=== PATIENT | female | born 1955 | race Caucasian/White ===

== ENCOUNTER 2023-08-15 13:15 | Outpatient (RCR) | payer BC, SELFPAY | END 2023-08-15 15:19 | disposition home or self-care (01) | LOC: RPT 13:15 | PROVIDERS: ATTENDING PHYSICIAN Student in an Organized Health Care Education/Training Program | DX: M25.551 Pain in right hip (principal); M25.552 Pain in left hip; R42 Dizziness and giddiness | CPT/HCPCS: 97110; 97112; 97530 ==

== ENCOUNTER 2023-11-12 12:01 | Emergency (ER) | payer MEDICARE, OTHER, SELFPAY ==
[2023-11-12 12:11] VITALS: BP 165/105
--- NOTE | 2023-11-12 12:50 | ED.GENMED ---
History of Present Illness
General
Chief Complaint: Heart Rate Problem
Source: patient
Exam Limitations: none
Time Seen by Provider: 11/12/23 12:39
Travel History
Have you had any contact with someone who has COVID-19?: No
Do you have any symptoms of coronavirus? Fever > 100 degrees, chills, cough, shortness of breath, sore throat, loss of taste or smell, muscle aches, or headache?: No
History of Present Illness
History of Present Illness:
See MDM
Past History
Past History
ED Past Medical History: HTN and Hypercholesterolemia
ED Past Surgical History: None
Social History
Tobacco: Non-smoker
Phy Exam
Physical Exam
Physical Exam:
See MDM
Course
Orders/Labs/Results
Orders:
Orders
11/12/23 12:15
Electrocardiogram (*1) Urgent
Reason for Study: Palpitations
EKG- Treatment ONCE
11/12/23 12:49
0.9% Sodium Chloride 1000 ml [Nss] 1,000 ml IV BOLUS
11/12/23 13:02
Complete Blood Count/With Diff Urgent
Comprehensive Metabolic Panel Urgent
Magnesium Urgent
TSH Reflex To Free T4 Urgent
Troponin I Urgent
11/12/23 14:55
Metoprolol Xl [Toprol Xl] 25 mg PO NOW STA
Abnormal Lab Results
11/12/23
13:02
MCH 31.8 H pg
(27.0-31.0)
BUN 18 H mg/dl
(7-17)
Glucose 110 H mg/dl
(70-99)
11/12/23 13:02
11/12/23 13:02
Vital Signs
Initial and Last Documented VS:
Initial Vital Signs
Temp Pulse Resp BP Pulse Ox
98.0 F 124 18 165/105 100
11/12/23 12:11 11/12/23 12:11 11/12/23 12:11 11/12/23 12:11 11/12/23 12:11
Last Documented Vital Signs
Temp Pulse Resp BP Pulse Ox
98.0 F 115 14 147/80 96
11/12/23 12:11 11/12/23 14:46 11/12/23 14:46 11/12/23 14:46 11/12/23 14:46
MDM/Problems Addressed
Differential Diagnosis Includes:
HPI and MDM Narrative:
68-year-old female presenting with palpitations. This occurred while she was at a . Patient does acknowledge that there was no emotional stress associated with this. This is a very similar presentation 1 month ago when she was in [place].
She went to the emergency department there and symptoms resolved with fluids and she was told she is likely dehydrated. She does not currently feel dehydrated. She is worried that the symptoms have returned. She denies prior cardiac history.
Symptoms are not worse with exertion. Regardless of the recent plane rides, she denies any leg swelling or leg pain.
On exam, she is well-appearing nontoxic. EKG shows a sinus rhythm with sinus arrhythmia. Will obtain basic including magnesium, troponin and thyroid testing. Patient acknowledges the likelihood of a negative workup but will place on cardiac
callback tracker for expedited followup
Physical exam
General: Well appearing and non-toxic
HEENT: protecting airway
Neck: appears supple
CV: No evidence of cyanosis. Regular rate and rhythm. Initial tachycardia with
Resp: No accessory muscle use
Abd: Non-distended
Extremities: No deformities. No leg edema or unilateral tenderness
Neuro: alert
Psych: Normal affect
Skin: Intact
Problems Addressed including Acute and Chronic Conditions affecting care:
1. Palpitations
Acuity: acute
Prognosis: stable
Details: Will give IV fluids and reassess. Will obtain basic blood work but ultimately will place on cardiac callback tracker
Updates
Blood work without significant abnormality. Patient intermittently becomes tachycardic. Will start metoprolol. Patient placed on cardiac callback tracker.
Differential Diagnosis (but not limited to): Dehydration, palpitations, A-fib
Testing considered: D-dimer but she has no clinical signs of DVT
Drug therapy (if applicable): OTC meds, please see d/c instruction regarding Rx drugs
Amount and/or Complexity of Data Reviewed
Clinical info obtained from: Patient
External data reviewed: N/A
Labs I independently reviewed (but not limited to): Troponin negative
Radiology: N/A
Pulse Ox: not hypoxic
EKG independently reviewed: Sinus rhythm, normal axis, no STEMI
Communications Electrician Supervisor: Sinus rhythm
Critical Care: N/A
Risk of Complication:
Social Determinants of health: Good social support
Discussed with other providers: N/A
Escalation of Care includes Admit/Obs: After being observed in the Emergency Department, pt stable for discharge.
Occasional wrong word or 'sound a like' substitutions may have occurred due to the inherent limitations of voice recognition software. Read the chart carefully and recognize, using context, where substitutions have occurred.
*Critical Care Note
Total Time (30-74mins, 75-104mins- exclusive of procedures): Not Applicable
ED Attending Note
-
Portions of this chart may have been created with voice recognition software.� Occasional wrong word or��sound alike� substitutions may have occurred due to the inherent limitations of voice recognition software.
Discharge Plan
Departure
Patient Disposition: Home (Routine Discharge)
Date of Disposition: 11/12/23
Time of Disposition: 14:58
Patient with high blood pressure during this ER visit?: Yes
Discharge Problem:
Heart palpitations
Instructions: Palpitations (DC), Chest Pain CBC Follow Up, BLOOD PRESSURE
Prescriptions:
New
metoprolol succinate [Toprol XL] 25 mg tablet extended release 24 hr
25 mg PO DAILY Qty: 30 0RF
Referrals:
Rigo Roman MD [Active] -
Luciana Lama MD [Family Provider] -
Activity Restrictions/Additional Instructions:
Please return for any worsening symptoms.
You may return at any time if you have further concerns.
Please follow up with your doctor at the first available appointment, preferably this week.
You were placed on the cardiac callback tracker. Someone from their office should call you in the next few days. If you do not hear from them in the next few days, please give them a call.
Thank you for choosing [facility].
Interventions
Interventions:
*Risk Screen - Suicide Last Done: 11/12/23 12:14
*General Assessment Last Done: 11/12/23 12:14
*Neglect/Abuse Screening Last Done: 11/12/23 12:14
ED- Fall Risk Assessment Last Done: 11/12/23 13:10
ED- Cardiac Assessment Last Done: 11/12/23 14:51
ED- Pulmonary Assessment Last Done: 11/12/23 13:10
[2023-11-12] MEDS: NSS 1000 IV (13:08)
[2023-11-12 13:14] LABS: % Eosinophils 2.9 % (0-6); % Immature Granulocytes 0.3 % (0-0.5); % Monocytes 9.2 % (1.7-9.3); % Neutrophils 52.6 % (42.2-75.2); Absolute Basophils 0.1 10^3/uL (0-0.2); Absolute Eosinophils 0.2 10^3/uL (0-0.7); Absolute Monocytes 0.5 10^3/uL (0.1-0.6); Absolute Neutrophils 3.1 10^3/uL (1.4-6.5); Hematocrit 38.6 % (37.0-47.0); Hemoglobin 13.8 g/dL (12.0-16.0); Mean Corp Hgb Conc. 35.8 g/dL (33.0-37.0); Mean Corpuscular Hgb 31.8 pg (27.0-31.0); Mean Corpuscular Volume 88.9 fL (81.0-99.0); Mean Platelet Volume 8.7 fL (7.4-10.4); Nucleated Red Blood Cells % 0 %; Platelet Count 279 10^3/uL (130-400); Red Blood Cell Count 4.34 10^6/uL (4.20-5.40); Red Cell Dist. Width 12.3 % (11.5-14.5); White Blood Cell Count 5.9 10^3/uL (4.8-10.8)
[2023-11-12 13:30] LABS: ALT (SGPT) 33 U/L (0-35); AST (SGOT) 29 U/L (14-36); Albumin 4.8 g/dl (3.5-5.0); Alkaline Phosphatase 69 U/L (38-126); Blood Urea Nitrogen 18 mg/dl (7-17); Calcium 9.9 mg/dl (8.4-10.2); Carbon Dioxide 29 mmol/L (22-30); Chloride 100 mmol/L (98-107); Glucose 110 mg/dl (70-99); Potassium 3.7 mmol/L (3.5-5.1); Sodium 138 mmol/L (135-145); Total Bilirubin 0.8 mg/dl (0.2-1.3); Total Protein 7.4 g/dl (6.3-8.2); eGFR > 60.00
[2023-11-12 13:39] LABS: Troponin I < 0.012 ng/ml
[2023-11-12 13:55] VITALS: BP 145/89
[2023-11-12 14:00] VITALS: BP 158/82
[2023-11-12 14:46] VITALS: BP 147/80
[2023-11-12 15:00] VITALS: BP 152/80
[2023-11-12] MEDS: TOPROL XL 25 MG PO (15:09)
== END 2023-11-12 15:19 | disposition home or self-care (01) ==
LOC: EMR 12:01
PROVIDERS: EMERGENCY PHYSICIAN Student in an Organized Health Care Education/Training Program; FAMILY PHYSICIAN Student in an Organized Health Care Education/Training Program
DX: R00.2 Palpitations (principal); I10 Essential (primary) hypertension
CPT/HCPCS: 99284; 96360; 80053; 83735; 84443; 84484; 85025; 93005

== ENCOUNTER → 2023-11-24 09:45 | Outpatient (REF) | payer OTHER, SELFPAY | LOC: RCS 09:45 | PROVIDERS: ATTENDING PHYSICIAN Internal Medicine Cardiovascular Disease; FAMILY PHYSICIAN Student in an Organized Health Care Education/Training Program | DX: R00.2 Palpitations (principal) | CPT/HCPCS: 93225; 93226 ==

== ENCOUNTER → 2023-12-24 09:23 | Outpatient (REF) | payer OTHER, SELFPAY | LOC: RCS 09:23 | PROVIDERS: ATTENDING PHYSICIAN Internal Medicine Cardiovascular Disease; FAMILY PHYSICIAN Student in an Organized Health Care Education/Training Program | DX: R00.2 Palpitations (principal) | CPT/HCPCS: 93306 ==

== ENCOUNTER → 2024-08-23 13:55 | Outpatient (REF) | payer OTHER, SELFPAY | LOC: WDC 13:55 | PROVIDERS: ATTENDING PHYSICIAN Obstetrics & Gynecology Gynecology; FAMILY PHYSICIAN Student in an Organized Health Care Education/Training Program | DX: Z12.31 Encounter for screening mammogram for malignant neoplasm of breast (principal); Z12.39 Encounter for other screening for malignant neoplasm of breast | CPT/HCPCS: 77063; 77067 ==

== ENCOUNTER → 2024-09-23 10:28 | Outpatient (REF) | payer MEDICARE, OTHER, SELFPAY | LOC: RAD 10:28 | PROVIDERS: ATTENDING PHYSICIAN Student in an Organized Health Care Education/Training Program | DX: Z78.0 Asymptomatic menopausal state (principal) | CPT/HCPCS: 77080 ==

== ENCOUNTER → 2024-11-19 10:49 | Outpatient (REF) | payer MEDICARE, OTHER, SELFPAY ==
[2024-11-19 11:31] LABS: % Basophils 0.9 % (0-2); % Eosinophils 6.2 % (0-6); % Immature Granulocytes 0.5 % (0-0.5); % Monocytes 7.8 % (1.7-9.3); % Neutrophils 53.6 % (42.2-75.2); Absolute Basophils 0.1 10^3/uL (0-0.2); Absolute Eosinophils 0.4 10^3/uL (0-0.7); Absolute Monocytes 0.5 10^3/uL (0.1-0.6); Absolute Neutrophils 3.4 10^3/uL (1.4-6.5); Hematocrit 40.3 % (37.0-47.0); Hemoglobin 13.7 g/dL (12.0-16.0); Mean Corpuscular Hgb 31.4 pg (27.0-31.0); Mean Corpuscular Volume 92.2 fL (81.0-99.0); Mean Platelet Volume 8.9 fL (7.4-10.4); Nucleated Red Blood Cells % 0 %; Platelet Count 295 10^3/uL (130-400); Red Blood Cell Count 4.37 10^6/uL (4.20-5.40); White Blood Cell Count 6.3 10^3/uL (4.8-10.8)
[2024-11-19 12:00] LABS: Blood Urea Nitrogen 18 mg/dl (7-17); Calcium 10.2 mg/dl (8.4-10.2); Carbon Dioxide 34 mmol/L (22-30); Chloride 104 mmol/L (98-107); Glucose 106 mg/dl (70-99); Potassium 4.4 mmol/L (3.5-5.1); Sodium 143 mmol/L (135-145); eGFR > 60.00
== END ==
LOC: RCS 10:49
PROVIDERS: ATTENDING PHYSICIAN Orthopaedic Surgery; FAMILY PHYSICIAN Student in an Organized Health Care Education/Training Program
DX: Z01.818 Encounter for other preprocedural examination (principal)
CPT/HCPCS: 36415; 80048; 85025; 93005

== ENCOUNTER → 2024-12-23 13:08 | Outpatient (REF) | payer MEDICARE, OTHER, SELFPAY | LOC: RAD 13:08 | PROVIDERS: ATTENDING PHYSICIAN Student in an Organized Health Care Education/Training Program | DX: K59.00 Constipation, unspecified (principal) | CPT/HCPCS: 74018 ==

== ENCOUNTER 2024-12-24 15:13 | Outpatient (RCR) | payer MEDICARE, OTHER, SELFPAY | END 2024-12-24 23:59 | disposition home or self-care (01) | LOC: RPT 15:13 | PROVIDERS: ATTENDING PHYSICIAN Orthopaedic Surgery; FAMILY PHYSICIAN Student in an Organized Health Care Education/Training Program | DX: Z47.1 Aftercare following joint replacement surgery (principal); M16.12 Unilateral primary osteoarthritis, left hip; Z73.6 Limitation of activities due to disability; R26.89 Other abnormalities of gait and mobility; M62.81 Muscle weakness (generalized); Z96.642 Presence of left artificial hip joint | CPT/HCPCS: 97110; 97140; 97161; 97530 ==

== ENCOUNTER 2025-01-23 14:03 | Outpatient (RCR) | payer MEDICARE, OTHER, SELFPAY | END 2025-01-23 23:59 | disposition home or self-care (01) | LOC: RPT 14:03 | PROVIDERS: ATTENDING PHYSICIAN Orthopaedic Surgery; FAMILY PHYSICIAN Student in an Organized Health Care Education/Training Program | DX: Z47.1 Aftercare following joint replacement surgery (principal); M16.12 Unilateral primary osteoarthritis, left hip; Z73.6 Limitation of activities due to disability; R26.89 Other abnormalities of gait and mobility; M62.81 Muscle weakness (generalized); Z96.642 Presence of left artificial hip joint | CPT/HCPCS: 97010; 97110; 97140; 97530 ==

== ENCOUNTER 2025-02-12 11:04 | Outpatient (RCR) | payer MEDICARE, OTHER, SELFPAY | END 2025-02-12 23:59 | disposition home or self-care (01) | LOC: RPT 11:04 | PROVIDERS: ATTENDING PHYSICIAN Orthopaedic Surgery; FAMILY PHYSICIAN Student in an Organized Health Care Education/Training Program | DX: Z47.1 Aftercare following joint replacement surgery (principal); M16.12 Unilateral primary osteoarthritis, left hip; Z73.6 Limitation of activities due to disability; R26.89 Other abnormalities of gait and mobility; M62.81 Muscle weakness (generalized); Z96.642 Presence of left artificial hip joint | CPT/HCPCS: 97110; 97530 ==

== ENCOUNTER 2025-07-15 06:30 | Day surgery (SDC) | payer MEDICARE, OTHER, SELFPAY | END 2025-07-15 09:31 | disposition home or self-care (01) | LOC: GI 06:30 | PROVIDERS: ATTENDING PHYSICIAN Specialist | DX: Z12.11 Encounter for screening for malignant neoplasm of colon (principal); K57.30 Diverticulosis of large intestine without perforation or abscess without bleeding; D12.2 Benign neoplasm of ascending colon; K63.2 Fistula of intestine; K62.1 Rectal polyp | CPT/HCPCS: 45385; 45380; 88305 ==

== ENCOUNTER → 2025-08-25 12:20 | Outpatient (REF) | payer MEDICARE, OTHER, SELFPAY | LOC: WDC 12:20 | PROVIDERS: ATTENDING PHYSICIAN Obstetrics & Gynecology Gynecology; FAMILY PHYSICIAN Student in an Organized Health Care Education/Training Program | DX: Z12.31 Encounter for screening mammogram for malignant neoplasm of breast (principal); Z12.39 Encounter for other screening for malignant neoplasm of breast | CPT/HCPCS: 77063; 77067 ==